=== PATIENT | female | born 1960 | race Caucasian/White ===

== ENCOUNTER 2020-09-09 08:46 | Emergency (ER) | payer OTHER ==
[~2020-09-09] VITALS: Ht 157.5 cm; Wt 79.8 kg
--- OUTSIDE RECORDS SUMMARY | 2020-09-09 08:50 | XMS ---
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 Ruben has no Care Guidelines for this patient. Melissa VISIT COUNT (12 MO.) 1 ROSALBA Russell TOTAL 1 NOTE: Visits indicate total known visits. ED/C VISIT TRACKING (12 MO.) 09/09/2020 08:47 ROSALBA [facility] [place] TYPE: Emergency COMPLAINT: - LEG CRAMPS/ MUSCLE TIGHTNESS INPATIENT VISIT TRACKING (12 MO.) No inpatient visits to display in this time frame [id number]
[2020-09-09] MEDS ORDERED: CHILDREN'S ASPI81 M1 PO (09:06)
[2020-09-09] MEDS ORDERED: TRAZODONE HCL300 MG PO (09:07)
[2020-09-09] MEDS ORDERED: TIZANIDINE HCL2 M1 (09:07)
[2020-09-09] MEDS ORDERED: ROXIFOL-D TA500 UNIT PO (09:07)
== END 2020-09-09 11:30 | disposition home or self-care (01) ==
LOC: ED 08:46
DX: M79.10 Myalgia, unspecified site (principal); N18.30 Chronic kidney disease, stage 3 unspecified; K76.9 Liver disease, unspecified; M19.90 Unspecified osteoarthritis, unspecified site; Z88.5 Allergy status to narcotic agent; Z79.899 Other long term (current) drug therapy; Z79.82 Long term (current) use of aspirin
CPT/HCPCS: 80053; 81001; 82553; 83735; 84443; 85025; 85651; 96374; 99283-25; J1885

== ENCOUNTER 2020-11-12 10:05 | Emergency (ER) | payer OTHER ==
[~2020-11-12] VITALS: Ht 157.5 cm; Wt 79.8 kg
[~2020-11-12 10:05] MED LIST: CHILDREN'S ASPI81 M1 PO; ROXIFOL-D TA500 UNIT PO; TIZANIDINE HCL2 M1; TRAZODONE HCL300 MG PO
[2020-11-12] MEDS ORDERED: METOPROLOL SUCC25 MG PO (10:24)
[2020-11-12] MEDS ORDERED: BACLOFEN10 MG PO (10:25)
== END 2020-11-12 12:45 | disposition home or self-care (01) ==
LOC: ED 10:05
DX: K59.00 Constipation, unspecified (principal); R79.89 Other specified abnormal findings of blood chemistry; M79.7 Fibromyalgia; M19.90 Unspecified osteoarthritis, unspecified site; K76.9 Liver disease, unspecified; Z88.5 Allergy status to narcotic agent; Z79.82 Long term (current) use of aspirin; Z79.899 Other long term (current) drug therapy
CPT/HCPCS: 74018; 80053; 81001; 83690; 85025; 96374; 96375; 99284-25; J2270; J2405; J7030

== ENCOUNTER 2021-01-31 08:00 | Emergency (ER) | payer OTHER ==
[~2021-01-31] VITALS: Ht 157.5 cm; Wt 83.0 kg
[~2021-01-31 08:00] MED LIST changes: +BACLOFEN10 MG PO; +METOPROLOL SUCC25 MG PO
[2021-01-31] MEDS ORDERED: AMOX TR-K CLV1 EAC1 PO (08:39)
[2021-01-31] MEDS ORDERED: TRAZODONE HCL150 MG PO (08:39)
[2021-01-31] MEDS ORDERED: PREDNISONE20 MG PO (10:03)
[2021-01-31] MEDS ORDERED: HYDROCODON-ACE1 EA10 PO (10:03)
== END 2021-01-31 10:11 | disposition home or self-care (01) ==
LOC: ED 08:00
DX: M25.511 Pain in right shoulder (principal); M19.90 Unspecified osteoarthritis, unspecified site; Z88.5 Allergy status to narcotic agent; Z79.899 Other long term (current) drug therapy; Z79.82 Long term (current) use of aspirin
CPT/HCPCS: 73030; 99283-25; J7512

== ENCOUNTER 2021-07-26 20:53 | Emergency (ER) | payer OTHER ==
[~2021-07-26] VITALS: Ht 157.5 cm; Wt 82.5 kg
[~2021-07-26 20:53] MED LIST changes: +AMOX TR-K CLV1 EAC1 PO; +HYDROCODON-ACE1 EA10 PO; +PREDNISONE20 MG PO; +TRAZODONE HCL150 MG PO
[2021-07-26] MEDS ORDERED: CELECOXIB200 MG PO (21:08)
[2021-07-26] MEDS ORDERED: HYDROCODON-ACE1 EA10 PO (23:51)
--- NOTE | 2021-07-28 12:33 | EKG ---
[facility] [address] [facility] [place], [place] [address] Signed Normal sinus rhythm Normal ECG No previous ECGs available Confirmed by DEE MUNIZ MD ([id number]) on 07/28/2021 12:32:54 PM Electronically Signed By: DEE MUNIZ MD 07/28/21 1233 PATIENT NAME: J CARLOS HOFFMAN Electrocardiogram DATE OF : 60 PHYSICIAN: DEE MUNIZ MD REPORT #: [id number] REPORT IS CONFIDENTIAL AND NOT TO BE RELEASED WITHOUT AUTHORIZATION
== END 2021-07-27 00:19 | disposition home or self-care (01) ==
LOC: ED 20:53
DX: R07.89 Other chest pain (principal); M54.9 Dorsalgia, unspecified; K76.9 Liver disease, unspecified; M19.90 Unspecified osteoarthritis, unspecified site; Z88.5 Allergy status to narcotic agent; Z79.899 Other long term (current) drug therapy
CPT/HCPCS: 36415; 71045; 71275; 74174; 80053; 83735; 84484; 85025; 85379; 93005; 93010; 99285-25; A9270; J1170; J2405; Q9967

== ENCOUNTER 2021-12-25 13:27 | Emergency (ER) | payer OTHER ==
[~2021-12-25] VITALS: Ht 157.5 cm; Wt 85.9 kg
[~2021-12-25 13:27] MED LIST changes: +CELECOXIB200 MG PO
[2021-12-25] MEDS ORDERED: DULOXETINE HCL40 MG PO (13:59)
[2021-12-25] MEDS ORDERED: QVAR REDIHALE10.6 GM (14:00)
[2021-12-25] MEDS ORDERED: METHOCARBAMOL750 MG PO (14:00)
[2021-12-25] MEDS ORDERED: CONSTULOSE10 GM/15 M PO (17:16)
[2021-12-25] MEDS ORDERED: CIPRO500 MG PO (17:16)
[2021-12-25] MEDS ORDERED: ONDANSETRON ODT4 MG PO (17:16)
[2021-12-25] MEDS ORDERED: METRONIDAZOLE500 MG PO (17:16)
== END 2021-12-25 17:47 | disposition home or self-care (01) ==
LOC: ED 13:27
DX: K57.30 Diverticulosis of large intestine without perforation or abscess without bleeding (principal); Z88.5 Allergy status to narcotic agent; Z88.6 Allergy status to analgesic agent
CPT/HCPCS: 36415; 74176; 80053; 81003; 83690; 85025; 96365; 99284-25; J2543; J7030